=== PATIENT | female | born 1975 | race Two or more races ===

== ENCOUNTER 2024-08-30 21:12 | Emergency (ER) | payer SELFPAY ==
[~2024-08-30] VITALS: Ht 152.4 cm; Wt 86.4 kg
[2024-08-30 21:16] VITALS: BP 120/67; PULSE 76; RESP 18; TEMP 98.6; O2SAT 100
[2024-08-31] MEDS: KETOROLAC TROMETHAMINE 30 MG/ML VIAL IM ONE (00:18)
[2024-08-31] MEDS: TraMADol HCL 50 MG TABLET PO ONE (00:18)
[2024-08-31] MEDS ORDERED: TRAM50TA5 PO (02:30)
== END 2024-08-31 03:22 | disposition home or self-care (01) ==
LOC: EMS 21:12
DX: M17.11 Unilateral primary osteoarthritis, right knee (principal); M19.071 Primary osteoarthritis, right ankle and foot; F17.210 Nicotine dependence, cigarettes, uncomplicated; M25.562 Pain in left knee; Z85.3 Personal history of malignant neoplasm of breast
CPT/HCPCS: 99283; 73562; 96372; J1885

== ENCOUNTER 2024-10-21 10:22 | Emergency (ER) | payer MEDICAID ==
[~2024-10-21] VITALS: Ht 152.4 cm; Wt 90.9 kg
[~2024-10-21 10:22] MED LIST: ASPI-1444 PO; HYDROX5L PO; NAPR-1025 PO; PANT-31 PO; SERT20OR6 PO; TRAM50TA5 PO
[2024-10-21 10:41] VITALS: TEMP 98.3
[2024-10-21] MEDS ORDERED: SERT-439 PO (12:30)
[2024-10-21] MEDS ORDERED: HYDR-4808 PO (12:30)
[2024-10-21] MEDS: KETOROLAC TROMETHAMINE 30 MG/ML VIAL IM ONE (12:31)
[2024-10-21 14:00] VITALS: BP 125/63; PULSE 82; RESP 17; O2SAT 99
== END 2024-10-21 15:21 | disposition home or self-care (01) ==
LOC: EMS 10:30
DX: M17.0 Bilateral primary osteoarthritis of knee (principal); Z79.82 Long term (current) use of aspirin; Z85.3 Personal history of malignant neoplasm of breast; Z79.899 Other long term (current) drug therapy
CPT/HCPCS: 99284; 73130 ×2; 73562 ×2; 73610 ×2; 96372; J1885